=== PATIENT | male | born 1950 | race Caucasian/White ===

== ENCOUNTER 2021-01-04 16:19 | Emergency (ER) | payer MEDICARE, OTHER ==
--- NOTE | 2021-01-04 16:47 | ED Physician Documentation ---
History of Present Illness - Stated complaint Stated Complaint: DIZZY/NAUSEA - Chief complaint Chief Complaint: Neuro - History obtained from History obtained from: Patient - History of Present Illness Timing: How many hours ago (14) Pain level max: 0 Pain level now: 0 - Additonal information Additional information: 70-year-old male presents to the emergency department complaining of dizziness since approximately 3 AM. He states that it does not feel like things are spinning. He states he feels lightheaded and off balance. Worse with movement, better with rest. No recent illness. No recent fall or trauma. No chest pain. No shortness of breath. No changes to his medications. No fever. No chills. No recent travel. No focal neurological deficits. No numbness or tingling Review of Systems Ten Systems: 10 systems reviewed and negative Constitutional: denies: Fever, Chills Nose: denies: Rhinorrhea / runny nose, Congestion Respiratory: denies: Cough GI: reports: Nausea. denies: Abdominal Pain, Vomiting, Diarrhea Skin: denies: Rash Musculoskeletal: denies: Neck pain, Back pain Neurologic: reports: Generalized weakness. denies: Confused, Headache, Head injury, LOC PD PAST MEDICAL HISTORY - Past Medical History Cardiovascular: None Respiratory: None Endocrine/Autoimmune: None : None HEENT: Chronic hearing loss Psych: None Musculoskeletal: Chronic back pain Derm: None - Past Surgical History Past Surgical History: Yes General: Cholecystectomy Ortho: Spine surgery - Present Medications Home Medications: Ambulatory Orders Medication Instructions Recorded Confirmed Aspirin EC [Ecotrin] 81 mg PO DAILY #30 tablet 08/25/16 01/04/21 Atorvastatin [Lipitor] 20 mg PO ONCE #30 tablet 08/25/16 01/04/21 Citalopram [CeleXA] 40 mg PO DAILY 08/25/16 01/04/21 Gabapentin 300 mg PO BID 08/25/16 01/04/21 Nitroglycerin [Nitrostat] 0.4 mg SL Q5MIN PRN #1 tablet 08/25/16 01/04/21 Pramipexole [Mirapex] 0.25 mg PO QPM 08/25/16 01/04/21 - Allergies Allergies/Adverse Reactions: Allergies Allergy/AdvReac Type Severity Reaction Status Date / Time morphine Allergy Anaphylaxis Verified 01/04/21 16:25 - Social History Does the pt smoke?: No Smoking Status: Never smoker Does the pt drink ETOH?: Yes Does the pt have substance abuse?: No - Immunizations Immunizations are current?: Yes - POLST Patient has POLST: No PD ED PE NORMAL - Vitals Vital signs reviewed: Yes - General General: Alert and oriented X 3, No acute distress - HEENT HEENT: Atraumatic, PERRL, Ears normal, Moist mucous membranes, Pharynx benign - Neck Neck: Supple, no meningeal sign - Cardiac Cardiac: RRR, Strong equal pulses - Respiratory Respiratory: No respiratory distress, Clear bilaterally - Abdomen Abdomen: Soft, Non tender, Non distended - Back Back: No CVA TTP, No spinal TTP - Derm Derm: Warm and dry - Extremities Extremities: No edema - Neuro Neuro: Alert and oriented X 3, hair boiler 2-12 intact, No motor deficit, No sensory deficit, Normal speech, Other (normal cerebellar tests) Eye Opening: Spontaneous Motor: Obeys Commands Verbal: Oriented GCS Score: 15 - Psych Psych: Normal mood, Normal affect Results - Vitals Vitals: Vital Signs - 24 hr 01/04/21 01/04/21 01/04/21 16:22 16:35 18:44 Temperature 36.7 C 36.6 C Heart Rate 77 68 72 Respiratory 16 20 14 Rate Blood Pressure 146/81 H 143/89 H 139/83 H O2 Saturation 97 96 97 01/04/21 01/04/21 19:58 20:15 Temperature 36.6 C 36.6 C Heart Rate 71 71 Respiratory 16 16 Rate Blood Pressure 132/81 H 132/81 H O2 Saturation 100 100 Oxygen O2 Source Room air - EKG (time done) 1629 Rate: Rate (enter#) (69) Rhythm: NSR [place]: Normal Intervals: Normal [place] QRS: Normal Ischemia: Normal ST segments - Labs Labs: Laboratory Tests 01/04/21 01/04/21 01/04/21 16:46 16:46 16:46 WBC 5.5 RBC 5.28 Hgb 15.9 Hct 47.4 MCV 89.8 MCH 30.1 MCHC 33.5 RDW 12.7 Plt Count 194 MPV 9.2 Neut # (Auto) 4.0 Lymph # (Auto) 1.0 L [place] # (Auto) 0.3 Eos # (Auto) 0.1 Baso # (Auto) 0.1 Absolute Nucleated RBC 0.00 Nucleated RBC % 0.0 Sodium 137 Potassium 4.1 Chloride 99 L Carbon Dioxide 25 Anion Gap 13.0 BUN 13 Creatinine 1.0 Estimated GFR (MDRD) 74 L Glucose 114 H Calcium 9.4 Total Bilirubin 1.4 H AST 18 ALT 17 Alkaline Phosphatase 90 Troponin I High Sens < 2.3 L Total Protein 7.3 Albumin 4.0 Globulin 3.3 Albumin/Globulin Ratio 1.2 Lipase 22 Urine Color Urine Clarity Urine pH Ur Specific [place] Urine Protein Urine Glucose (UA) Urine Ketones Urine Occult Blood Urine Nitrite Urine Bilirubin Urine Urobilinogen Ur Leukocyte Esterase Ur Microscopic Review Urine Culture Comments 01/04/21 19:00 WBC RBC Hgb Hct MCV MCH MCHC RDW Plt Count MPV Neut # (Auto) Lymph # (Auto) [place] # (Auto) Eos # (Auto) Baso # (Auto) Absolute Nucleated RBC Nucleated RBC % Sodium Potassium Chloride Carbon Dioxide Anion Gap BUN Creatinine Estimated GFR (MDRD) Glucose Calcium Total Bilirubin AST ALT Alkaline Phosphatase Troponin I High Sens Total Protein Albumin Globulin Albumin/Globulin Ratio Lipase Urine Color YELLOW Urine Clarity CLEAR Urine pH 7.5 Ur Specific [place] <=1.005 Urine Protein NEGATIVE Urine Glucose (UA) NEGATIVE Urine Ketones 40 H Urine Occult Blood NEGATIVE Urine Nitrite NEGATIVE Urine Bilirubin NEGATIVE Urine Urobilinogen 1 (NORMAL) Ur Leukocyte Esterase NEGATIVE Ur Microscopic Review NOT INDICATED Urine Culture Comments NOT INDICATED - Rads (name of study) CTA head Radiology: Prelim report reviewed, EMP read contemporaneously, See rad report CTA neck Radiology: Prelim report reviewed, EMP read contemporaneously, See rad report (no acute abnormalities) PD MEDICAL DECISION MAKING - ED course Complexity details: reviewed results, re-evaluated patient, considered differential, d/w patient ED course: Significant findings on CT angiogram of the head or neck. No significant lab abnormalities other than dehydration. Symptoms resolved with IV fluids. Ambulating without difficulty here. Normal gait. No signs of stroke. NIH stroke scale of 0. We will have him follow-up with his doctor for further care. Patient counseled regarding signs and symptoms for which I believe and urgent re-evaluation would be necessary. Patient with good understanding of and agreement to plan and is comfortable going home at this time This document was made in part using voice recognition software. While efforts are made to proofread this document, sound alike and grammatical errors may occur. Departure - Departure Disposition: 01 Home, Self Care Clinical Impression: Dehydration, Dizziness Condition: Good Instructions: ED Dehydration Follow-Up: ROLANDO WADE MD [Primary Care Provider] - Within 1 week Comments: Drink plenty of fluids. Return if you worsen. Follow-up with your doctor for further care. Your testing does not show any acute abnormality tonight other than dehydration. Discharge Date/Time: 01/04/21 20:15
[2021-01-04 16:54] LABS: BASOPHILS # (AUTO) 0.1 10^3/uL (0.0-0.1); BASOPHILS % (AUTO) 1.6 %; EOSINOPHILS # (AUTO) 0.1 10^3/uL (0.0-0.7); EOSINOPHILS % (AUTO) 1.6 %; HCT - HEMATOCRIT 47.4 % (42.0-52.0); HGB - HEMOGLOBIN 15.9 g/dL (14.0-18.0); LYMPHOCYTES % (AUTO) 17.5 %; MEAN CORPUSCULAR HEMOGLOBIN 30.1 pg (27.0-31.0); MEAN CORPUSCULAR HGB CONC 33.5 g/dL (32.0-36.0); MEAN CORPUSCULAR VOLUME 89.8 fL (80.0-94.0); MEAN PLATELET VOLUME 9.2 fL (7.4-11.4); MONOCYTES # (AUTO) 0.3 10^3/uL (0.0-1.0); MONOCYTES % (AUTO) 5.8 %; NEUTROPHILS % (AUTO) 73.3 %; PLT - PLATELET COUNT 194 10^3/uL (130-450); RED BLOOD COUNT 5.28 10^6/uL (4.70-6.10); RED CELL DISTRIBUTION WIDTH 12.7 % (12.0-15.0); WHITE BLOOD COUNT 5.5 x10^3/uL (4.8-10.8)
[2021-01-04] MEDS ORDERED: IOVERSOL 320 100 ML VIAL IVP ONE ×2 (17:00→18:10)
[2021-01-04 17:10] LABS: ALBUMIN/GLOBULIN RATIO 1.2 (1.0-2.2); BILIRUBIN,TOTAL 1.4 mg/dL (0.2-1.0); CALCIUM 9.4 mg/dL (8.5-10.3); POTASSIUM 4.1 mmol/L (3.5-5.0); TOTAL PROTEIN 7.3 g/dL (6.7-8.2)
--- NOTE | 2021-01-04 18:03 | CT Report ---
PROCEDURE: ANGIO HEAD W/WO INDICATIONS: off balance, dizzy CONTRAST: IV CONTRAST: Optiray 320 ml: 80 PO CONTRAST: *NO PO CONTRAST TECHNIQUE: Precontrast 4.5 mm thick angled axial sections acquired from the foramen magnum to the vertex. Afte r the administration of intravenous contrast, 1 mm thick sections acquired through the [place] of [place] is. Postcontrast 4.5 mm thick sections then re-acquired from the foramen magnum to the vertex. 3-di mensional ggiuapf-hexjlrysn-mszlslxove (MIP) and/or volume rendering reformats were acquired of the c entral intracranial vasculature. For radiation dose reduction, the following was used: automated ex posure control, adjustment of mA and/or kV according to patient size. COMPARISON: None FINDINGS: Image quality: Excellent. Anterior circulation: Intracranial internal carotid arteries are normal in size and flow. The flow within the paired anterior cerebral arteries is normal and symmetric. The flow within the middle cer ebral arteries is normal and symmetric. The anterior communicating artery is seen. No aneurysms are seen. Posterior circulation: Visualized portions of the vertebral arteries demonstrate normal caliber, and join to form a normal appearing basilar artery. Flow within the posterior cerebral arteries is norm al and symmetric. No aneurysms are seen. CSF spaces: Ventricles are normal in size and shape. Basal cisterns are patent. No extra-axial flu id collections. Brain: No midline shift. No intracranial bleeds or masses. Mccollum-white matter interface appears int act. Skull and face: Calvarium and facial bones appear intact, without suspicious lesions. Sinuses: Visualized sinuses and mastoids are clear. IMPRESSION: No flow-limiting stenosis of the major intracranial arterial circulation. Reviewed by: Noe Loyd MD on 01/04/2021 6:02 PM PDT Approved by: Noe Loyd MD on 01/04/2021 6:02 PM PDT Station ID: [id number]
--- NOTE | 2021-01-04 18:08 | CT Report ---
PROCEDURE: ANGIO NECK W INDICATIONS: off balance, dizzy CONTRAST: IV CONTRAST: Optiray 320 ml: 80 PO CONTRAST: *NO PO CONTRAST TECHNIQUE: After the administration of intravenous contrast, 1.5 mm axial sections acquired from the aortic arch to the [place] of [place]. Coronal 3-D maximum intensity projection (MIP) and/or volume rendering ref ormats were then performed. For radiation dose reduction, the following was used: automated exposur e control, adjustment of mA and/or kV according to patient size. COMPARISON: None. FINDINGS: Image quality: Excellent. Carotid system: The great vessels demonstrate a conventional anatomy as they arise from the aortic a [facility]. The origins of the common carotid arteries appear patent. The common carotid arteries demonstr ate normal calibers and courses. The bifurcation regions appear normal bilaterally. The internal ca rotid arteries demonstrate normal caliber and course. Posterior circulation: The origins of the vertebral arteries appear patent. The more superior porti ons of the vertebral arteries demonstrate normal course and caliber. They join to form a normal appe aring basilar artery. Soft tissues: Visualized neck soft tissues demonstrate no suspicious abnormalities. The thyroid gla nd is normal in size. Bones: No suspicious bony lesions. Visualized cervical spine appears normally aligned. IMPRESSION: No hemodynamically significant stenosis or occlusion of the major extracranial arterial vasculature. The estimate of stenosis included in the report of the imaging study was calculated using the NASCET method Reviewed by: Noe Loyd MD on 01/04/2021 6:06 PM PDT Approved by: Noe Loyd MD on 01/04/2021 6:06 PM PDT Station ID: [id number]
[2021-01-04] MEDS ORDERED: SODIUM CHLORIDE 0.9% 1,000 ML IV STA (18:35)
[2021-01-04 19:12] LABS: BILIRUBIN,URINE NEGATIVE (NEGATIVE); GLUCOSE, URINE (UA) NEGATIVE (NEGATIVE); KETONES,URINE (UA) 40 mg/dL (NEGATIVE); LEUKOCYTE ESTERASE, URINE NEGATIVE (NEGATIVE); NITRITE,URINE NEGATIVE (NEGATIVE); OCCULT BLOOD,URINE NEGATIVE (NEGATIVE); PH,URINE 7.5 PH (5.0-7.5); PROTEIN,URINE NEGATIVE (NEGATIVE); UROBILINOGEN,URINE 1 (NORMAL) E.U./dL (NORMAL)
[2021-01-04 19:14] LABS: CLARITY,URINE CLEAR (CLEAR)
[2021-01-04 19:59] VITALS: BP 132/81
== END 2021-01-04 20:15 | disposition home or self-care (01) ==
LOC: ED 16:19
DX: E86.0 Dehydration (principal); R42 Dizziness and giddiness
CPT/HCPCS: 36415; 70496; 70498; 80053; 81003; 83690; 84484; 85025; 93005; 96360; 99284; Q9967; 81001; 87086

== ENCOUNTER 2021-04-23 03:34 | Outpatient (CLI) | payer MEDICARE, OTHER | END 2021-04-23 03:35 | disposition critical access hospital (66) | LOC: EMS 03:34 | DX: S09.90XA Unspecified injury of head, initial encounter (principal); S61.411A Laceration without foreign body of right hand, initial encounter; W18.39XA Other fall on same level, initial encounter; Y93.01 Activity, walking, marching and hiking; Y92.002 Bathroom of unspecified non-institutional (private) residence as the place of occurrence of the external cause | CPT/HCPCS: A0425; A0427 ==

== ENCOUNTER 2021-04-23 04:06 | Emergency (ER) | payer MEDICARE, OTHER ==
--- NOTE | 2021-04-23 04:07 | ED Physician Documentation ---
PD HPI Fall - Stated complaint Stated Complaint: GLF - History obtained from History obtained from: Patient, Family (spouse (in ED at bedside)), EMS - History of Present Illness Mechanism of injury: Other (near syncope/weakness) Fall distance: Standing position Where injury occurred: Home Timing - onset: Enter time (approximately 2 AM) Injury(ies) location: Head, Right Hand Associated symptoms: Neck pain, Weakness. No: LOC Similar symptoms before: Has not had sx before Recently seen: Not recently seen - Additional information Additional information: BIBA. patient has had 3 falls since 2 AM. There is description of mechanical component with one of the falls ([place] got stuck on a door handle), but he also describes generalized weakness and lightheadedness with the most recent fall that led to his calling 911. This occurred when he got up from the toilet after a bowel movement and was heading back to bed. He did not lose consciousness, was found by EMS to have systolic blood pressure in the lower 80s. He was given 300cc IV NS en route and has had normotensive readings with this intervention. He arrives AAOx3, feels well except for neck pain and right hand pain. He sustained a right hand laceration but does not know the mechanism of this injury. Review of Systems Constitutional: reports: Reviewed and negative Eyes: reports: Reviewed and negative Cardiac: reports: Reviewed and negative Respiratory: reports: Reviewed and negative GI: reports: Reviewed and negative Skin: reports: Laceration (s) (right hand) Musculoskeletal: reports: Neck pain, Extremity pain (right hand). denies: Back pain Neurologic: reports: Generalized weakness (resolved en route after IV fluids), Confused ( says patient was confused after he fell but this resolved prior to EMS arrival), Head injury. denies: Focal weakness, Numbness, Headache, LOC PD PAST MEDICAL HISTORY - Past Medical History Past Medical History: Yes - Present Medications Home Medications: Ambulatory Orders Medication Instructions Recorded Confirmed Citalopram [CeleXA] 40 mg PO DAILY 08/25/16 01/04/21 Gabapentin 300 mg PO BID 08/25/16 01/04/21 Nitroglycerin [Nitrostat] 0.4 mg SL Q5MIN PRN #1 tablet 08/25/16 01/04/21 Pramipexole [Mirapex] 0.25 mg PO QPM 08/25/16 01/04/21 - Allergies Allergies/Adverse Reactions: Allergies Allergy/AdvReac Type Severity Reaction Status Date / Time morphine Allergy Anaphylaxis Verified 04/23/21 04:19 - Living Situation Living Situation: reports: With spouse/s.o. Living Arrangement: reports: At home PD ED PE NORMAL - Vitals Vital signs reviewed: Yes - General General: Alert and oriented X 3, No acute distress, Well developed/nourished - HEENT HEENT: PERRL, EOMI, Moist mucous membranes - Neck Neck: Supple, no meningeal sign, No bony TTP - Cardiac Cardiac: RRR, No murmur - Respiratory Respiratory: No respiratory distress, Clear bilaterally - Abdomen Abdomen: Soft, Non tender - Back Back: No spinal TTP - Derm Derm: Normal color, Warm and dry - Extremities Extremities: No deformity, No edema PD ED PE EXPANDED - HEENT HEENT Visual: 1 - abrasion, swelling, tenderness - Extremities Extremities: Motor intact, Sensory intact, Vascular intact, Tendon intact NAZARIO UE/Hands Visual: 1 - laceration (6 cm length laceration . bony tenderness over 2nd, third metacarpals) Results - Vitals Vitals: Oxygen O2 Source Room air - Labs Labs: Laboratory Tests 04/23/21 04/23/21 04/23/21 05:22 05:22 05:22 WBC 8.3 RBC 5.09 Hgb 15.4 Hct 45.2 MCV 88.8 MCH 30.3 MCHC 34.1 RDW 12.6 Plt Count 193 MPV 9.3 Neut # (Auto) 7.0 H Lymph # (Auto) 0.7 L [place] # (Auto) 0.5 Eos # (Auto) 0.0 Baso # (Auto) 0.1 Absolute Nucleated RBC 0.00 Nucleated RBC % 0.0 Sodium 137 Potassium 4.1 Chloride 103 Carbon Dioxide 24 Anion Gap 10.0 BUN 17 Creatinine 1.1 Estimated GFR (MDRD) 66 L Glucose 115 H Calcium 9.2 Total Bilirubin 1.5 H AST 19 ALT 16 Alkaline Phosphatase 68 Troponin I High Sens 4.2 Total Protein 6.9 Albumin 4.1 Globulin 2.8 Albumin/Globulin Ratio 1.5 Lipase 28 - Rads (name of study) CT head Radiology: Prelim report reviewed, See rad report CT cervical spine Radiology: Prelim report reviewed, See rad report right hand xrays Radiology: Prelim report reviewed, See rad report Procedures - Laceration (location) Hand right Ventral Length in cm: 6 Wound type: Linear, Into subcut fat, Clean. No: Exposure of other neurovascular structure Neurovascular status: Sensory intact, Motor intact, Vascular intact Tendon involvement: Tendon intact Anesthesia: Lidocaine 1%, With bicarb, Volume - enter ml (10) Wound preparation: Chlorhexadine, Irrigated copiously NS, Wound explored, To the base. No: FB identified Skin layer closure: Nylon, Running, Size #-0 - enter number (4-0), Other (running suture (equivelant of 14 individual sutures) with a solitary midline simple interrupted suture placed) Other: Patient tolerated well, No complications, Neurovascular intact, Dressing applied, Tetanus UTD PD MEDICAL DECISION MAKING - ED course Complexity details: reviewed results, re-evaluated patient, considered differential, d/w patient, d/w family Departure - Departure Disposition: 01 Home, Self Care Clinical Impression: Near syncope Laceration of hand Qualifiers: Encounter type: initial encounter Foreign body presence: without foreign body Laterality: right Qualified Code(s): S61.411A - Laceration without foreign body of right hand, initial encounter Forehead contusion Qualifiers: Encounter type: initial encounter Qualified Code(s): S00.83XA - Contusion of other part of head, initial encounter Condition: Good Instructions: ED Head Injury Closed, ED Laceration Hand, ED Laceration Ext Sutr Stap Tape, ED Near Syncope Unkn Follow-Up: ROLANDO WADE MD [Primary Care Provider] - Comments: Follow up with your primary care provider in 8-10 days for removal of the stitches Discharge Date/Time: 04/23/21 07:42
[2021-04-23] MEDS ORDERED: BUFFERED LIDOCAINE 10 ML SYRINGE SUBQ STA (05:00)
[2021-04-23 05:29] LABS: BASOPHILS # (AUTO) 0.1 10^3/uL (0.0-0.1); BASOPHILS % (AUTO) 1.2 %; EOSINOPHILS % (AUTO) 0.5 %; HCT - HEMATOCRIT 45.2 % (42.0-52.0); HGB - HEMOGLOBIN 15.4 g/dL (14.0-18.0); LYMPHOCYTES # (AUTO) 0.7 10^3/uL (1.5-3.5); LYMPHOCYTES % (AUTO) 7.8 %; MEAN CORPUSCULAR HEMOGLOBIN 30.3 pg (27.0-31.0); MEAN CORPUSCULAR HGB CONC 34.1 g/dL (32.0-36.0); MEAN CORPUSCULAR VOLUME 88.8 fL (80.0-94.0); MEAN PLATELET VOLUME 9.3 fL (7.4-11.4); MONOCYTES # (AUTO) 0.5 10^3/uL (0.0-1.0); MONOCYTES % (AUTO) 6.4 %; NEUTROPHILS % (AUTO) 83.9 %; PLT - PLATELET COUNT 193 10^3/uL (130-450); RED BLOOD COUNT 5.09 10^6/uL (4.70-6.10); RED CELL DISTRIBUTION WIDTH 12.6 % (12.0-15.0); WHITE BLOOD COUNT 8.3 x10^3/uL (4.8-10.8)
[2021-04-23] MEDS ORDERED: SODIUM CHLORIDE 0.9% 1,000 ML IV STA (05:39)
[2021-04-23 05:40] LABS: ALBUMIN 4.1 g/dL (3.2-5.5); ALBUMIN/GLOBULIN RATIO 1.5 (1.0-2.2); BILIRUBIN,TOTAL 1.5 mg/dL (0.2-1.0); CALCIUM 9.2 mg/dL (8.5-10.3); CREATININE 1.1 mg/dL (0.6-1.2); POTASSIUM 4.1 mmol/L (3.5-5.0); TOTAL PROTEIN 6.9 g/dL (6.7-8.2)
--- NOTE | 2021-04-23 06:20 | CT Report ---
PROCEDURE: HEAD WO INDICATIONS: fall, head injury TECHNIQUE: Noncontrast 4.5 mm thick angled axial sections acquired from the foramen magnum to the vertex. For r adiation dose reduction, the following was used: automated exposure control, adjustment of mA and/or kV according to patient size. COMPARISON: None. FINDINGS: Image quality: Excellent. CSF spaces: Basal cisterns are patent. No extra-axial fluid collections. Ventricles are normal in size and shape. Brain: No midline shift. No intracranial masses or hemorrhage. Mccollum-white matter interface is norm al. Skull and face: Calvarium and visualized facial bones are intact, without suspicious lesions. Sinuses: Visualized sinuses and mastoids are clear. IMPRESSION: No trauma found. Reviewed by: Ludwin Shi MD on 04/23/2021 6:19 AM PDT Approved by: Ludwin Shi MD on 04/23/2021 6:19 AM PDT Station ID: [id number]
--- NOTE | 2021-04-23 06:22 | CT Report ---
PROCEDURE: CERVICAL SPINE WO INDICATIONS: fall, head injury, neck pain TECHNIQUE: Noncontrast 3 mm thick sections acquired from the skull base to the T4 level. Sagittal and coronal r eformats were then constructed. For radiation dose reduction, the following was used: automated exp osure control, adjustment of mA and/or kV according to patient size. COMPARISON: None. FINDINGS: Image quality: Excellent. Bones: No fractures or dislocations. Visualized superior ribs are intact. Prior C5-C7 fusion proce dure, long-standing. Soft tissues: Prevertebral soft tissues are normal in thickness. No paravertebral hematomas. No ap ical pneumothoraces. IMPRESSION: No trauma found. Prior C5-C7 fusion procedure. No sign of device loosening or disruption. Reviewed by: Ludwin Shi MD on 04/23/2021 6:21 AM PDT Approved by: Ludwin Shi MD on 04/23/2021 6:21 AM PDT Station ID: [id number]
[2021-04-23 06:31] VITALS: BP 121/72
[2021-04-23] MEDS ORDERED: BACITRACIN ZINC OINT 1 PACKET TOP STA (06:40)
--- NOTE | 2021-04-23 08:09 | XRAY Report ---
PROCEDURE: Hand 3 View RT INDICATIONS: fall, hand injury with laceration ,bony tenderness TECHNIQUE: 3 views of the hand(s) acquired. COMPARISON: None FINDINGS: Bones: No fractures or dislocations. No suspicious bony lesions. Soft tissues: No suspicious soft tissue calcifications. IMPRESSION: No trauma found. Reviewed by: Ludwin Shi MD on 04/23/2021 8:08 AM PDT Approved by: Ludwin Shi MD on 04/23/2021 8:08 AM PDT Station ID: [id number]
== END 2021-04-23 07:42 | disposition home or self-care (01) ==
LOC: EDUNIT# → ED 04:06
DX: R55 Syncope and collapse (principal); S61.411A Laceration without foreign body of right hand, initial encounter; S00.83XA Contusion of other part of head, initial encounter; S00.81XA Abrasion of other part of head, initial encounter; W18.39XA Other fall on same level, initial encounter; M54.2 Cervicalgia; Y93.01 Activity, walking, marching and hiking; Y92.002 Bathroom of unspecified non-institutional (private) residence as the place of occurrence of the external cause; Z91.81 History of falling; I95.9 Hypotension, unspecified
CPT/HCPCS: 12002; 36415; 70450; 72125; 73130; 80053; 83690; 84484; 85025; 93005; 99284; A9270

== ENCOUNTER 2022-07-29 20:11 | Emergency (ER) | payer MEDICARE, OTHER ==
[2022-07-29 20:28] VITALS: BP 136/75
--- NOTE | 2022-07-29 21:47 | ED Physician Documentation ---
PD HPI LOWER EXT INJURY - Stated complaint Stated Complaint: L THUMB LAC - Chief complaint Chief Complaint: Laceration - History obtained from History obtained from: Patient (This is a right-handed gentleman who is up-to-date on tetanus who cut the tip of his left thumb with a knife while cutting tomatoes at home just prior to arrival.) Review of Systems Constitutional: reports: Reviewed and negative Cardiac: reports: Reviewed and negative Respiratory: reports: Reviewed and negative PD PAST MEDICAL HISTORY - Past Medical History Cardiovascular: None Respiratory: None Endocrine/Autoimmune: None : None HEENT: Chronic hearing loss Psych: None Musculoskeletal: Chronic back pain Derm: None - Past Surgical History Past Surgical History: Yes General: Cholecystectomy Ortho: Spine surgery - Present Medications Home Medications: Ambulatory Orders Medication Instructions Recorded Confirmed Citalopram [CeleXA] 40 mg PO DAILY 08/25/16 01/04/21 Gabapentin 300 mg PO BID 08/25/16 01/04/21 Nitroglycerin [Nitrostat] 0.4 mg SL Q5MIN PRN #1 tablet 08/25/16 01/04/21 Pramipexole [Mirapex] 0.25 mg PO QPM 08/25/16 01/04/21 - Allergies Allergies/Adverse Reactions: Allergies Allergy/AdvReac Type Severity Reaction Status Date / Time morphine Allergy Anaphylaxis Verified 07/29/22 20:28 - Social History Does the pt smoke?: No Smoking Status: Never smoker Does the pt drink ETOH?: Yes Does the pt have substance abuse?: No - Immunizations Immunizations are current?: Yes - POLST Patient has POLST: No PD ED PE NORMAL - Vitals Vital signs reviewed: Yes - General General: Alert and oriented X 3, No acute distress - HEENT HEENT: PERRL, EOMI - Neck Neck: Supple, no meningeal sign, No bony TTP - Extremities Extremities: Other (There is a laceration on the tip of the left thumb measuring about 2 cm around. It is just into subcutaneous tissue and does not affect the nail.) - Neuro Neuro: Alert and oriented X 3, Normal speech Results - Vitals Vitals: Vital Signs - 24 hr 07/29/22 20:25 Temperature 36.2 C L Heart Rate 75 Respiratory 16 Rate Blood Pressure 136/75 H O2 Saturation 98 Oxygen O2 Source Room air Procedures - Laceration (location) L thumb Length in cm: 2 Wound type: Curved, Into subcut fat Neurovascular status: Sensory intact, Motor intact Tendon involvement: Tendon intact Anesthesia: Marcaine 0.25% (digital block) Wound preparation: Irrigated copiously NS Skin layer closure: Nylon, Interrupted, Size #-0 - enter number (5-0), Sutures - enter # (5) Other: Patient tolerated well, No complications, Neurovascular intact, Dressing applied, Tetanus UTD Departure - Departure Disposition: 01 Home, Self Care Clinical Impression: Laceration Condition: Good Record reviewed to determine appropriate education?: Yes Instructions: ED Laceration Hand Comments: Come back for any signs of infection which would include: Redness, swelling, drainage, increased pain, or fevers. You can wash it soap and water. Keep it covered and moist with bacitracin ointment which is available over the counter; avoid neosporin. Follow-up with your physician in About 14 days for suture removal.
== END 2022-07-29 22:06 | disposition home or self-care (01) ==
LOC: ED 20:11
DX: S61.012A Laceration without foreign body of left thumb without damage to nail, initial encounter (principal); W26.0XXA Contact with knife, initial encounter; Y93.G1 Activity, food preparation and clean up
CPT/HCPCS: 12001; 99281

== ENCOUNTER 2024-04-18 14:27 | Outpatient (CLI) | payer MEDICARE, OTHER | END 2024-04-18 14:28 | disposition home or self-care (01) | LOC: LAB.S 14:27 | PROVIDERS: ATTEND Physician Assistant | DX: N39.0 Urinary tract infection, site not specified (principal) | CPT/HCPCS: 87086 ==

== ENCOUNTER 2024-05-11 08:00 | Outpatient (CLI) | payer MEDICARE, OTHER | END 2024-05-11 23:59 | disposition home or self-care (01) | LOC: LAB 08:00 | PROVIDERS: ATTEND Registered Nurse | DX: N39.0 Urinary tract infection, site not specified (principal) | CPT/HCPCS: 87086; 87181 ==